=== PATIENT | male | born 1960 | race Two or more races ===

== ENCOUNTER → 2025-02-13 | Emergency (ER) | payer OTHER ==
[~2025-02-13] VITALS: Ht 167.6 cm; Wt 90.7 kg
[~2025-02-13] MED LIST: AZITHROMYCIN 500 MG TABLET PO ONE; DEXAMETHASONE SODIUM PHOSPHATE 4 MG/ML VIAL IM ONE; DEXAMETHASONE SODIUM PHOSPHATE 4 MG/ML VIAL ONE; GUAIFENESIN/DEXTROMETHORPHAN 100MG/10ML BLIST.PACK PO ONE; HYDROCHLOROTH12.5 M2; TUSNEL LIQUID178 ML PO; VASOTEC5 MG; ZITHROMAX500 MG PO
[2025-02-13 11:09] LABS: HEMATOCRIT 44.4 % (39.0-48.0); HEMOGLOBIN 15.4 g/dL (13-16.00); MEAN CELL VOLUME 92.5 fL (80.0-100.00); MEAN CORPUSCULAR HEMOGLOBIN 32.1 pg (27.00-32.0); MEAN CORPUSCULAR HGB CONC 34.7 g/dl (32.0-36.0); PLATELET COUNT 238 K/uL (150-450); RED CELL DISTRIBUTION WIDTH 15.1 % (11.5-14.5)
== END | disposition home or self-care (01) ==
LOC: ER 09:34
PROVIDERS: General Practice
DX: J06.9 Acute upper respiratory infection, unspecified (principal); J00 Acute nasopharyngitis [common cold]; Z20.822 Contact with and (suspected) exposure to COVID-19; I10 Essential (primary) hypertension